=== PATIENT | male | born 1995 | race Caucasian/White ===

== ENCOUNTER 2018-03-16 20:47 | Emergency (ER) | payer BC, OTHER ==
[2018-03-16] MEDS ORDERED: Morphine VIAL* 4 MG/ML VIAL (1 ml vial) IV ONE (21:05)
[2018-03-16] MEDS ORDERED: Ondansetron INJ* 2 MG/ML VIAL IV ONE (21:05)
--- NOTE | 2018-03-16 21:23 | ED ---
Lower Extremity - HPI Summary HPI Summary: 22-year-old male presents with left ankle deformity today. He was playing kickball and slide into the base and hurt his left ankle. He has pain mostly in the left ankle and lower leg. He has a previous surgery to the area in [address] Taylor. No numbness or tingling. no other injury. denies any other injury. has not taken anything for pain. pain is worst with movement. last ate at 6pm peanut butter and jelly. - History of Current Complaint Chief Complaint: EDExtremityLower Stated Complaint: LT ANKLE INJURY Time Seen by Provider: 03/16/18 21:04 Pain Intensity: 7 - Allergies/Home Medications Allergies/Adverse Reactions: Allergies Allergy/AdvReac Type Severity Reaction Status Date / Time No Known Allergies Allergy Verified 11/26/14 11:04 PMH/Surg Hx/FS Hx/Imm Hx Endocrine/Hematology History: Denies: Hx Anticoagulant Therapy Cardiovascular History: Denies: Hx Myocardial Infarction Musculoskeletal History: Reports: Hx Arthritis - LEFT ANKLE Sensory History: Denies: Hx Contacts or Glasses, Hx Hearing Aid Opthamlomology History: Denies: Hx Contacts or Glasses Neurological History: Reports: Hx Headaches - WHEN WAS YOUNGER - Surgical History Surgery Procedure, Year, and Place: EYE SURGERY FOR A STY A CHILD Hx Anesthesia Reactions: No Infectious Disease History: No Infectious Disease History: Denies: Traveled Outside the [place] in Last 30 Days - Family History Known Family History: Positive: Hypertension - Social History Alcohol Use: Occasionally Substance Use Type: Reports: None Smoking Status (MU): Never Smoked Tobacco Review of Systems Negative: Fever Negative: Chest Pain Negative: Shortness Of Breath Positive: Myalgia - left ankle pain All Other Systems Reviewed And Are Negative: Yes Physical Exam Triage Information Reviewed: Yes Vital Signs On Initial Exam: Initial Vitals Temp Pulse Resp BP Pulse Ox 97.9 F 83 16 117/84 100 03/16/18 20:48 03/16/18 20:48 03/16/18 20:48 03/16/18 20:48 03/16/18 20:48 Vital Signs Reviewed: Yes Appearance: Positive: Well-Appearing Skin: Positive: Warm, Dry Head/Face: Positive: Normal Head/Face Inspection Eyes: Positive: Normal, Conjunctiva Clear ENT: Positive: Pharynx normal Respiratory/Lung Sounds: Positive: Clear to Auscultation, Breath Sounds Present Cardiovascular: Positive: Normal, RRR Musculoskeletal: Positive: Other - deformity to left ankle, external rotated, good pulses, capillary refill<2 secs, abrasion to medial malleolous, able to wiggle toe, sensation grossly intact Neurological: Positive: Normal Psychiatric: Positive: Normal Diagnostics - Vital Signs Vital Signs Temp Pulse Resp BP Pulse Ox 03/16/18 21:20 16 03/16/18 21:00 67 99 03/16/18 20:58 65 135/77 100 03/16/18 20:57 68 99 03/16/18 20:48 97.9 F 83 16 117/84 100 - Laboratory Lab Statement: Any lab studies that have been ordered have been reviewed, and results considered in the medical decision making process. - Radiology ankle Xray Interpretation: Positive (See Comments) - dislocation and spiral fracture fibula Radiology Interpretation Completed By: ED Physician ankle reduction Xray Interpretation: Positive (See Comments) - reduced ankle Radiology Interpretation Completed By: ED Physician Lower Extremity Course/Dx - Course Course Of Treatment: 22-year-old male presents with left ankle deformity today. He was playing kickball and slide into the base and hurt his left ankle. He has pain mostly in the left ankle and lower leg. He has a previous surgery to the area in [address] Taylor. No numbness or tingling. no other injury. denies any other injury. has not taken anything for pain. pain is worst with movement. last ate at 6pm peanut butter and jelly. on exam has deformity to left ankle. neurovascular intact. has abrasion to medial malleolus but is not an open fracture. xray shows spiral fracture with talus displacement. reduction performed by dr taylor. postreduction xray normal. will have follow up with ortho. patient understand and agrees with plan. - Diagnoses Differential Diagnosis/HQI/PQRI: Positive: Dislocation, Fracture (Closed) Provider Diagnoses: Fibula fracture, Ankle dislocation Discharge - Sign-Out/Discharge Documenting (check all that apply): Patient Departure - Discharge Plan Condition: Good Disposition: HOME Prescriptions: oxyCODONE/Acetamin 5/325 MG* [Percocet 5/325 TAB*] 1 tab PO Q6H PRN #16 tab MDD 4 PRN Reason: Pain Patient Education Materials: Ankle Fracture (ED) Referrals: Asa Taylor MD [Medical Doctor] - Additional Instructions: Use crutches and stay nonweight bearing Keep splint on area and keep dry Call ortho office tomorrow to set up appointment for follow up Use ibuprofen for pain every 6 hours and use narcotic for breakthrough pain Ice, elevate Return to ED if develop numbness or tingling or any new or worsening symptoms - Billing Disposition and Condition Condition: GOOD Disposition: Home
[2018-03-16] MEDS ORDERED: HYDROmorphone INJ* 2 MG/ML CARPUJECT SYRINGE IV SLOW PU ONE (21:45)
[2018-03-16] MEDS ORDERED: Lidocaine 1% INJ* 10 MG/ML 30 ML SDV ONE (22:36)
[2018-03-17 00:40] VITALS: BP 120/63
--- NOTE | 2018-03-17 01:28 | CONS ---
CONSULTATION REPORT: DATE OF CONSULT: 03/16/18 HISTORY OF PRESENT ILLNESS: Caroline is a healthy, active 22-year-old gentleman who was sliding in the third base around 07:30 this evening and sustained a closed fracture dislocation of his left ankle. He was brought to the emergency room and I was called at around and after reviewing the x-rays over the internet, I determined that there was actually dislocation of the ankle. The emergency room staffing was occupied with another emergency, so I came in to do the dislocation reduction. Caroline is a healthy, young man, not currently taking any medications. There is no systemic illness. He actually is a patient of mine, previously he had had a previous orthopedic procedure. He was in some acute distress because of the ankle dislocation and deformity, but otherwise was alert, oriented and appropriate to mood and affect. He is accompanied by his mother and father. Caroline displayed external rotation dislocation of the left ankle. Skin was intact. No significant blistering or swelling noted at this point. He had a warm sensate foot. His x-ray showed a high fibula external rotation dislocation of the left ankle. The ankle joint was dislocated posteriorly. After appropriate time-out and marking of the limb, I instilled 10 mL of 1% lidocaine into the tibiotalar joint and then 3 minutes later, relocated his tibiotalar joint with gentle traction and manipulation. An Eric wrap was applied and then a well-moulded splint. X-rays were ordered then subsequently to document the reduction of the ankle. My plan for Caroline would be for him to be discharged this evening for elevation, pain management at home, and then a followup in our office when the elective repair of the ankle can be scheduled. [id number]/[facility] #: [id number] DEEPA
--- NOTE | 2018-03-17 07:53 | RAD ---
INDICATION: Left ankle dislocation COMPARISON: October 01, 2015 TECHNIQUE: AP, lateral, and oblique views were obtained. FINDINGS: There is subtalar fusion without evidence of hardware failure. There is dorsal dislocation of the talus at the ankle mortise. IMPRESSION: DORSAL DISLOCATION AT THE ANKLE MORTISE. POST SURGICAL CHANGES
--- NOTE | 2018-03-17 08:43 | RAD ---
HISTORY: left lower leg pain COMPARISONS: None VIEWS: 6, Frontal, lateral, and oblique views of the left foreleg FINDINGS: BONE DENSITY: Normal. BONES: There is an angulated fracture of the fibular diaphysis. JOINTS: There is no arthropathy. ALIGNMENT: There is no dislocation. SOFT TISSUES: Unremarkable. OTHER FINDINGS: None. IMPRESSION: ANGULATED FIBULAR FRACTURE R0
--- NOTE | 2018-03-17 08:50 | RAD ---
HISTORY: post reduction COMPARISONS: March 16, 2018 VIEWS: 2, Frontal and lateral views of the left ankle FINDINGS: BONE DENSITY: Normal. BONES: The patient is status post subtalar fusion. There are well-corticated bone fragments of the medial malleolus and distal fibula consistent with remote avulsion injury. 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 SOFT TISSUES: Unremarkable. OTHER FINDINGS: None. IMPRESSION: INTERVAL REDUCTION OF TIBIOTALAR DISLOCATION R0
== END 2018-03-17 00:23 | disposition home or self-care (01) ==
LOC: ED 20:47
DX: S82.402A Unspecified fracture of shaft of left fibula, initial encounter for closed fracture (principal); X58.XXXA Exposure to other specified factors, initial encounter; Y93.6A Activity, physical games generally associated with school recess, summer camp and children; Y92.9 Unspecified place or not applicable; Z82.49 Family history of ischemic heart disease and other diseases of the circulatory system
CPT/HCPCS: 27780; 27840; 99283; J1170; J2270; J2405

== ENCOUNTER 2018-03-21 08:31 | Day surgery (SDC) | payer OTHER ==
[~2018-03-21 08:31] MED LIST: Buffered Lidocaine 0.9% SYRIN* 5 ML/SYR SYRINGE INTRADERM ONE; Dexamethasone IV* 4 MG/ML 1 ML (4 MG) IV SLOW PU ONE; Famotidine IV* 10 MG/ML 2 ML (20 mg) IV ONE
[2018-03-21] MEDS ORDERED: Famotidine IV* 10 MG/ML 2 ML (20 mg) ONE (08:54)
[2018-03-21] MEDS ORDERED: Dexamethasone IV* 4 MG/ML 1 ML (4 MG) ONE (08:54)
[2018-03-21] MEDS ORDERED: ceFAZolin 2 GM PREMIX (*) 2 GM/50 ML BAG IVPB ONE (08:54)
[2018-03-21] MEDS ORDERED: Midazolam* 1 MG/ML 2 ML VIAL (2 MG) ONE (11:23)
[2018-03-21] MEDS ORDERED: fentaNYL* 50 MCG/ML 2 ML VIAL (100 MCG VIAL) ONE ×2 (11:23→12:51)
[2018-03-21] MEDS ORDERED: KETAMINE HCL* 50 MG/ML 10 ML VIAL ONE (12:12)
[2018-03-21] MEDS ORDERED: Bupivacaine 0.5% PF 10 ML VIAL INJ ONE (12:20)
[2018-03-21] MEDS ORDERED: Propofol* 10 MG/ML 20 ML BTL IV PUSH ONE (12:43)
[2018-03-21] MEDS ORDERED: Ondansetron INJ* 2 MG/ML VIAL ONE (12:43)
[2018-03-21] MEDS ORDERED: Ketorolac INJ* 30 MG/ML 1 ML VIAL ONE (12:43)
[2018-03-21] MEDS ORDERED: Naloxone* 0.4 MG/ML 1 ML VIAL IV PRN (13:05)
[2018-03-21] MEDS ORDERED: fentaNYL* 50 MCG/ML 2 ML VIAL (100 MCG VIAL) IV PRN (13:05)
[2018-03-21] MEDS ORDERED: HYDROmorphone INJ* 0.5 MG/0.5 ML SYRINGE IV PRN (13:05)
[2018-03-21] MEDS ORDERED: Acetaminophen TAB* 325 MG ONE (13:13)
[2018-03-21] MEDS ORDERED: oxyCODONE TAB* 5 MG TAB ONE (13:13)
[2018-03-21 14:08] VITALS: BP 128/72
--- NOTE | 2018-03-22 01:23 | OP ---
DATE OF OPERATION: 03/21/18 - [facility] DATE OF : 89 ATTENDING SURGEON: Asa Lucas MD HUMAN RESOURCE PROFESSIONAL: Lizette Rosales PA-C. PRE-OP DIAGNOSIS: Left [place] ankle fracture dislocation. POST-OP DIAGNOSIS: Left [place] ankle fracture dislocation. OPERATIVE PROCEDURE: Open reduction internal fixation of the left ankle syndesmosis. DESCRIPTION OF PROCEDURE: The patient was taken to the operating room where a 5 -cm longitudinal incision was made over the distal fibula. We incised down over the anterior aspect of the fibula to identify the torn anterior tibiofibular ligaments. The fibula then was held with a point of reduction clamp. We distracted distally and then internally rotated tight into the mortise and pinned this with a 0.062 C-wire. We then exchanged for a one-third tubular plate over the distal fibula placing our syndesmotic screws. X-ray intraoperative showed good reduction of the mortise and fibula tightly apposed. We then irrigated thoroughly closing with Vicryl and jessi for the skin and a compression dressing plaster splint. [id number]/[facility] #: [id number] MTDD
--- NOTE | 2018-03-22 07:52 | RAD ---
HISTORY: Left lower leg pain, trauma COMPARISONS: March 16, 2018 TECHNIQUE: Fluoroscopy was provided for a surgical procedure. Total fluoroscopy time is: 1.4 seconds FINDINGS: Spot images demonstrate internal fixation of the distal fibula and tibia. There is evidence of previous subtalar fusion. IMPRESSION: FLUOROSCOPY WAS PROVIDED FOR A SURGICAL PROCEDURE CPT II Codes: G9500
== END 2018-03-21 14:26 | disposition home or self-care (01) ==
LOC: OR 08:31
PROVIDERS: ATTEND Orthopaedic Surgery
DX: S82.862A Displaced Maisonneuve's fracture of left leg, initial encounter for closed fracture (principal); S93.04XA Dislocation of right ankle joint, initial encounter; W18.39XA Other fall on same level, initial encounter; Y93.6A Activity, physical games generally associated with school recess, summer camp and children; Y92.328 Other athletic field as the place of occurrence of the external cause
CPT/HCPCS: 36415; 86703; A9270-GY; C1713; C1776; J0690; J1100; J1885; J2250; J2405; J2704; J3010

== ENCOUNTER 2018-08-01 05:48 | Day surgery (SDC) | payer OTHER ==
[2018-08-01] MEDS ORDERED: Buffered Lidocaine 0.9% SYRIN* 5 ML/SYR SYRINGE INTRADERM ONE (06:00)
[2018-08-01] MEDS ORDERED: Morphine PCA ADULT* 5 MG/ML 30 ML ONE (06:03)
[2018-08-01] MEDS ORDERED: Propofol* 500 MG/50 ML BTL ONE (06:38)
[2018-08-01] MEDS ORDERED: Lidocaine 2% PF * 5 ML VIAL ONE (06:38)
[2018-08-01] MEDS ORDERED: Buffered Lidocaine 0.9% SYRIN* 5 ML/SYR SYRINGE ONE (06:38)
[2018-08-01] MEDS ORDERED: Propofol* 10 MG/ML 20 ML BTL ONE (06:38)
[2018-08-01] MEDS ORDERED: ceFAZolin 2 GM PREMIX in ORs 2 GM/50 ML BAG IVPB ONE (06:38)
[2018-08-01] MEDS ORDERED: Lidocaine 2% PF* 10 ML AMP ONE (07:08)
[2018-08-01] MEDS ORDERED: Midazolam* 1 MG/ML 5 ML VIAL (5 MG) ONE (07:27)
[2018-08-01] MEDS ORDERED: Ondansetron INJ* 2 MG/ML VIAL IV PRN (07:50)
[2018-08-01] MEDS ORDERED: Naloxone* 0.4 MG/ML 1 ML VIAL IV PRN (07:50)
[2018-08-01] MEDS ORDERED: fentaNYL* 50 MCG/ML 2 ML VIAL (100 MCG VIAL) IV PRN (07:50)
[2018-08-01] MEDS ORDERED: oxyCODONE TAB* 5 MG TAB PO PRN (07:50)
[2018-08-01] MEDS ORDERED: Acetaminophen TAB* 325 MG PO PRN (07:50)
[2018-08-01] MEDS ORDERED: Ketorolac INJ* 30 MG/ML 1 ML VIAL ONE (08:03)
[2018-08-01] MEDS ORDERED: Ondansetron INJ* 2 MG/ML VIAL ONE (08:03)
[2018-08-01] MEDS ORDERED: Dexamethasone IV* 4 MG/ML 1 ML (4 MG) ONE (08:03)
[2018-08-01 09:40] VITALS: BP 133/89
[2018-08-01] MEDS ORDERED: Acetaminophen TAB* 325 MG ONE (09:42)
--- NOTE | 2018-08-02 10:18 | OP ---
DATE OF OPERATION: 08/01/18 - [facility] DATE OF : [birth year] SURGEON: Asa Lucas MD PRE-OP DIAGNOSIS: Syndesmotic plate and screw, left ankle. POST-OP DIAGNOSIS: Syndesmotic plate and screw, left ankle. OPERATIVE PROCEDURE: Removal of hardware, left ankle. DESCRIPTION OF PROCEDURE: The patient was taken to the operating room where attempted local followed by LMA was performed. With the ankle Esmarch applied, we incised directly down to the plate along the lateral border of the fibula. The screws were removed except for the one that was fractured somewhere within the syndesmosis. It was my estimation that the screw itself was in a safe position and unlikely to cause pain in the future, so I did not pursue it, which would require over drilling through the fibula and a risk of fracture. I then irrigated thoroughly closing with deep 2-0 Vicryl and jessi for the skin and a compression dressing applied. [id number]/[facility] #: [id number] MTDD
== END 2018-08-01 09:48 | disposition home or self-care (01) ==
LOC: OR 05:48
PROVIDERS: ATTEND Orthopaedic Surgery
DX: T84.84XA Pain due to internal orthopedic prosthetic devices, implants and grafts, initial encounter (principal); Y83.1 Surgical operation with implant of artificial internal device as the cause of abnormal reaction of the patient, or of later complication, without mention of misadventure at the time of the procedure; S82.62XD Displaced fracture of lateral malleolus of left fibula, subsequent encounter for closed fracture with routine healing; Y92.9 Unspecified place or not applicable
CPT/HCPCS: 88300; A9270-GY; J0690; J1100; J1885; J2001; J2250; J2270; J2405; J2704